=== PATIENT | female | born 1950 | race Caucasian/White ===

== ENCOUNTER → 2024-09-12 07:39 | Outpatient (REF) | payer MEDICARE, SELFPAY | LOC: WDC 07:39 | PROVIDERS: ATTENDING PHYSICIAN Nurse Practitioner Adult Health | DX: Z12.31 Encounter for screening mammogram for malignant neoplasm of breast (principal) | CPT/HCPCS: 77063; 77067 ==

== ENCOUNTER → 2024-10-02 08:31 | Outpatient (REF) | payer MEDICARE, SELFPAY | LOC: RAD 08:31 | PROVIDERS: ATTENDING PHYSICIAN Nurse Practitioner Adult Health | DX: M85.89 Other specified disorders of bone density and structure, multiple sites (principal); Z78.0 Asymptomatic menopausal state | CPT/HCPCS: 77080 ==

== ENCOUNTER → 2025-08-07 13:11 | Outpatient (REF) | payer MEDICARE, SELFPAY | LOC: REG 13:11 | PROVIDERS: ATTENDING PHYSICIAN Internal Medicine; FAMILY PHYSICIAN Nurse Practitioner Adult Health | DX: J18.9 Pneumonia, unspecified organism (principal) | CPT/HCPCS: 71046 ==